=== PATIENT | male | born 1960 | race Hispanic/Latino ===

== ENCOUNTER 2017-10-30 09:12 | Outpatient (CLI) | payer OTHER ==
[2017-10-30 10:33] LABS: Hemoglobin 14.2 g/dL (14.0-18.0); Mean Corpuscular HGB CONC 33.7 g/dL (32.0-36.0); Mean Corpuscular Hemoglobin 32.1 pg (27.0-31.0); Mean Corpuscular Volume 95.4 fl (80.0-94.0); Mean Platelet Volume 7.8 fL (7.4-10.4); Platelet Count 172 thou/uL (130-400); Red Blood Cell (RBC) Count 4.41 mill/uL (4.70-6.10); White Blood Cell (WBC) Count 5.1 thou/uL (4.8-10.8)
[2017-10-30 10:56] LABS: Anion Gap 11 mmol/L (10-20); BUN (Urea Nitrogen) 16 mg/dL (8.4-25.7); Calc. Creatinine Clearance 0 mL/min (70-130); Calcium 9.3 mg/dL (7.8-10.44); Carbon Dioxide 27 mmol/L (22-29); Chloride 106 mmol/L (98-107); Estimated GFR-MDRD 79; Glucose 99 mg/dL (70-105); Sodium 140 mmol/L (136-145)
--- NOTE | 2017-10-30 23:54 | EKG ---
Test Reason : Blood Pressure : / mmHG Vent. Rate : 063 BPM Atrial Rate : 063 BPM P-R Int : 172 ms QRS Dur : 070 ms QT Int : 396 ms P-R-T Axes : 058 055 022 degrees QTc Int : 405 ms Normal sinus rhythm Cannot rule out Anterior infarct , age undetermined Abnormal ECG No previous ECGs available Confirmed by Seven HUBBARD ([id number]) on 10/30/2017 11:53:41 PM Referred By: TONJA Confirmed By:Seven HUBBARD
== END 2017-10-30 09:13 | disposition home or self-care (01) ==
LOC: LABBT 09:12
PROVIDERS: ATTEND Orthopaedic Surgery
DX: Z01.818 Encounter for other preprocedural examination (principal); G56.01 Carpal tunnel syndrome, right upper limb; G56.21 Lesion of ulnar nerve, right upper limb
CPT/HCPCS: 80048; 85027; 93005; 93010

== ENCOUNTER → 2017-11-01 | Day surgery (SDC) | payer OTHER ==
[2017-10-30 09:46] VITALS: BMI 24.3
[~2017-11-01] MED LIST: Bupivacaine HCl 0.5%/Epinephrine 1:200,000/PF 30 ml Vial ONE; CEFAZOLIN/Water 2 GM/20 ML SYRINGE ONE; Fentanyl 100 MCG/2 ML VIAL ONE; HYDROcodone/Acetaminophen 5/325 mg Tablet ONE; HYDROmorphone 0.5 MG/0.5 ML SYRINGE ONE; Ketorolac Tromethamine 30 MG/ML VIAL ONE; Lidocaine 1% PF 5 ML VIAL ONE; Midazolam HCl 2 mg/2 ml Vial ONE; Morphine 4 MG/ML VIAL ONE; Neomycin-Polymyxin 1 ML AMP ONE; Ondansetron HCl/PF 4 MG/2 ML Vial ONE; PROPOFOL 200 MG/20 ML VIAL ONE
--- NOTE | 2017-11-01 17:05 | OP ---
DATE OF OPERATION: 11/01/2017 PREOPERATIVE DIAGNOSES: 1. Right carpal tunnel syndrome. 2. Right cubital tunnel syndrome. POSTOPERATIVE DIAGNOSES: 1. Right carpal tunnel syndrome. 2. Right cubital tunnel syndrome. PROCEDURES: 1. Right carpal tunnel release. 2. Right cubital tunnel release with anterior transposition of the ulnar nerve. SURGEON: Bradley Martin M.D. ANESTHESIA: General. TECHNIQUE: The patient was given preoperative IV antibiotics, taken to the operating room, placed in supine position. Satisfactory general anesthesia was performed. The right upper extremity was ster ilely prepped and draped in the usual fashion. After exsanguination, the tourniquet was raised to 25 0 mmHg. Initially, a 12-mm curvilinear incision was made at the base of the thumb over the carpal tu nnel. Blunt and sharp dissection was made down to the transverse carpal ligament, which was opened w ith tenotomy scissors. The median nerve was identified and using the [place] carpal tunnel release, the interval between the median nerve and the transverse carpal ligament was developed and then betwe en the transverse carpal ligament and palmar fashion. Using the [place] tome scalpel, the transverse carpal ligament was completely incised into the palm of the hand and into the distal aspect of the f orearm. The median nerve was completely visualized and noted to have no further constrictive tissue into the forearm or into the hand. The wound was then irrigated with antibiotic solution and closed using 3-0 Rapide. A curvilinear incision was then made on the medial aspect of the elbow centered ov er the medial epicondyle. Blunt and sharp dissection was made down to the cubital tunnel and the uln ar nerve was identified. It was noted to be very small in the cubital tunnel and was bigger both pro ximally and distally to it. It measured approximately 8 mm proximal to the cubital tunnel and came d own to about 4-5 mm in the cubital tunnel. The ulnar nerve was completely released both proximally a nd distally. The tendon and muscles for the flexure mass to the forearm was then released using Bovi e. The tendons and muscles were cut approximately 1.5 cm from their origin on the medial epicondyle and the ulnar nerve was then placed into this area on the anterior aspect of the medial epicondyle ma anabela sure that there was no further constrictive or restrictive tissue on the ulnar nerve. Number 1 Vicryl was used in interrupted [id number] sutures to repair the muscle and tendon back to itself at the medial epicondyle and it was also made sure that the ulnar nerve had plenty of room in submus cular area and was not impinged at any point. The wound was then copiously irrigated with antibiotic solution and the fat and subcutaneous tissue was closed with 2-0 Vicryl and skin was closed with 3-0 Rapide. The medial wound at the elbow and the carpal tunnel incision were then infiltrated with a t otal of 30 mL of 0.5% Marcaine with epinephrine. Sterile dressing was applied. Tourniquet was relea sed. The patient was awakened, extubated and transferred to the recovery room in stable condition. ESTIMATED BLOOD LOSS: None. COMPLICATIONS: None. TOURNIQUET TIME: Total for the carpal tunnel release and the ulnar nerve release and anterior transp osition was 33 minutes. DISCHARGE MEDICATIONS: [place] 10 one every 6 hours as needed for pain, #50. Follow in my office in 1 week.
== END ==
LOC: SDC 09:20
PROVIDERS: ATTEND Orthopaedic Surgery
PROC: 01N40ZZ Release Ulnar Nerve, Open Approach (ICD-10-PCS; principal; 2017-11-01)
PROC: 01N50ZZ Release Median Nerve, Open Approach (ICD-10-PCS; principal; 2017-11-01)
DX: G56.01 Carpal tunnel syndrome, right upper limb (principal); G56.21 Lesion of ulnar nerve, right upper limb; Z79.1 Long term (current) use of non-steroidal anti-inflammatories (NSAID); Z98.890 Other specified postprocedural states; X50.0XXA Overexertion from strenuous movement or load, initial encounter
CPT/HCPCS: J0670; J1170; J1885; J2001; J2250; J2270; J2405; J2704; J3010

== ENCOUNTER 2018-05-07 07:18 | Day surgery (SDC) | payer OTHER ==
[2018-05-07] MEDS ORDERED: CEFAZOLIN 2 GM/50 ML BAG ONE (09:01)
[2018-05-07 09:34] LABS: Hemoglobin 13.3 g/dL (14.0-18.0); Mean Corpuscular HGB CONC 32.4 g/dL (32.0-36.0); Mean Corpuscular Volume 92.5 fL (78.0-98.0); Platelet Count 179 thou/uL (130-400); RBC Distribution Width 11.9 % (11.5-14.5); Red Blood Cell (RBC) Count 4.43 mill/uL (4.70-6.10); White Blood Cell (WBC) Count 6.4 thou/uL (4.8-10.8)
[2018-05-07] MEDS ORDERED: Midazolam HCl 2 mg/2 ml Vial ONE (09:43)
[2018-05-07] MEDS ORDERED: Scopolamine 1.5 mg/72 hour Patch ONE (09:43)
[2018-05-07] MEDS ORDERED: Fentanyl 100 MCG/2 ML VIAL ONE ×2 (09:46→11:06)
[2018-05-07] MEDS ORDERED: Bupivacaine HCl 0.5%/Epinephrine 1:200,000/PF 30 ml Vial ONE (09:47)
[2018-05-07] MEDS ORDERED: Neomycin-Polymyxin 1 ML AMP ONE (09:49)
[2018-05-07 09:51] LABS: Anion Gap 9 mmol/L (10-20); BUN (Urea Nitrogen) 20 mg/dL (8.4-25.7); Calc. Creatinine Clearance 0 mL/min (70-130); Calcium 9.3 mg/dL (7.8-10.44); Carbon Dioxide 28 mmol/L (22-29); Chloride 104 mmol/L (98-107); Estimated GFR-MDRD 86; Glucose 105 mg/dL (70-105); Potassium 3.9 mmol/L (3.5-5.1); Sodium 137 mmol/L (136-145)
[2018-05-07] MEDS ORDERED: Morphine 2 MG/ML SYRINGE ONE (12:01)
[2018-05-07] MEDS ORDERED: HYDROcodone/Acetaminophen 5/325 mg Tablet ONE (12:30)
[2018-05-07] MEDS ORDERED: PROPOFOL 200 MG/20 ML VIAL ONE (16:29)
[2018-05-07] MEDS ORDERED: Dexamethasone 20 MG/5 ML VIAL ONE (16:29)
[2018-05-07] MEDS ORDERED: Glycopyrrolate 0.2 MG/ML 5 ML SYRINGE ONE (16:29)
[2018-05-07] MEDS ORDERED: Ondansetron PF 4 MG/2 ML Vial ONE (16:29)
[2018-05-07] MEDS ORDERED: Ketorolac Tromethamine 30 MG/ML VIAL ONE (16:29)
[2018-05-07] MEDS ORDERED: Lidocaine 1% PF 5 ML VIAL ONE (16:29)
--- NOTE | 2018-05-07 18:10 | OP ---
DATE OF PROCEDURE: 05/07/2018 PREOPERATIVE DIAGNOSIS: Lateral epicondylitis of right elbow. POSTOPERATIVE DIAGNOSES: Lateral epicondylitis of right elbow with small tear of the lateral capsule of the right elbow. PROCEDURE PERFORMED: Lateral epicondylar release with repair of the lateral capsule to the right elbow. ANESTHESIA: General. DESCRIPTION OF PROCEDURE: The patient was given preoperative IV antibiotics, taken to the operating room, placed in the supine position. Satisfactory general anesthesia was performed. The right upper extremity was sterilely prepped and draped in the usual fashion. After exsanguination, tourniquet was raised to 250 mmHg. A curvilinear incision was made approximately 3.5 cm over the lateral epicondylar region and the lateral epicondyle tendons were sharply detached from the lateral epicondyle. Dissection was brought down to the lateral aspect of the capsule and there was a tear in the lateral aspect of the capsule. This was repaired using 0 Vicryl. There was no necrotic tissue within the lateral epicondylar tendons. After the capsule was repaired, the tendons were sutured back down to the lateral epicondylar area. The wound was copiously irrigated with antibiotic solution and then the wound was closed using 3-0 Rapide to the skin. The wound was infiltrated with 20 mL of 0.5% Marcaine with epinephrine. Sterile dressing was applied. Tourniquet was released. The patient was awakened, extubated, and transferred to recovery room in stable condition. ESTIMATED BLOOD LOSS: None. COMPLICATIONS: None. TOURNIQUET TIME: 21 minutes. DISCHARGE MEDICATIONS: [place] 10 one every 6 hours as needed for pain, #20. FOLLOWUP: Followup in my office in 2 weeks. Job ID: [id number]
== END 2018-05-07 13:13 | disposition home or self-care (01) ==
LOC: SDC 07:18
PROVIDERS: ATTEND Orthopaedic Surgery
PROC: 0LN30ZZ Release Right Upper Arm Tendon, Open Approach (ICD-10-PCS; principal; 2018-05-07)
DX: M77.11 Lateral epicondylitis, right elbow (principal); S53.491A Other sprain of right elbow, initial encounter; Z98.890 Other specified postprocedural states
CPT/HCPCS: 36415; 80048; 85027; 96374; J0670; J1100; J1885; J2001; J2250; J2270; J2405; J2704; J3010

== ENCOUNTER 2018-11-05 10:54 | Day surgery (SDC) | payer OTHER ==
[2018-11-05 11:33] LABS: Hemoglobin 13.7 g/dL (14.0-18.0); Mean Corpuscular HGB CONC 33.5 g/dL (32.0-36.0); Mean Corpuscular Hemoglobin 30.9 pg (27.0-31.0); Mean Corpuscular Volume 92.4 fL (78.0-98.0); Mean Platelet Volume 8.5 fL (7.4-10.4); Platelet Count 222 thou/uL (130-400); RBC Distribution Width 12.5 % (11.5-14.5); Red Blood Cell (RBC) Count 4.42 mill/uL (4.70-6.10); White Blood Cell (WBC) Count 4.9 thou/uL (4.8-10.8)
[2018-11-05] MEDS ORDERED: Fentanyl 100 MCG/2 ML VIAL ONE ×3 (11:50→11:59)
[2018-11-05] MEDS ORDERED: Midazolam HCl 2 mg/2 ml Vial ONE ×2 (11:50→11:59)
[2018-11-05 11:59] LABS: Anion Gap 14 mmol/L (10-20); BUN (Urea Nitrogen) 5 mg/dL (8.4-25.7); Calc. Creatinine Clearance 0 mL/min (70-130); Calcium 9.5 mg/dL (7.8-10.44); Carbon Dioxide 24 mmol/L (22-29); Chloride 108 mmol/L (98-107); Estimated GFR-MDRD Greater than 90; Glucose 90 mg/dL (70-105); Potassium 4.2 mmol/L (3.5-5.1); Sodium 142 mmol/L (136-145)
[2018-11-05] MEDS ORDERED: Bupivacaine/Epinephrine 0.25% 30 ML VIAL ONE (12:02)
[2018-11-05] MEDS ORDERED: Ropivacaine 0.2% 550 ML 550 ML NERVE BLCK SCH (12:16)
[2018-11-05] MEDS ORDERED: Ondansetron PF 4 MG/2 ML Vial IVP PRN (12:16)
[2018-11-05] MEDS ORDERED: Zolpidem Tartrate 5 MG TAB PO PRN (12:16)
[2018-11-05] MEDS ORDERED: HYDROcodone/Acetaminophen 10/325 mg Tablet PO PRN ×2 (12:16)
[2018-11-05] MEDS ORDERED: Promethazine HCl 25 MG/ML VIAL IM PRN (12:16)
[2018-11-05] MEDS ORDERED: Fentanyl 100 MCG/2 ML VIAL IV PRN (12:17)
--- NOTE | 2018-11-05 17:52 | OP ---
DATE OF PROCEDURE: 11/05/2018 PREOPERATIVE DIAGNOSIS: Biceps tendinitis of the right shoulder. POSTOPERATIVE DIAGNOSIS: Tear of the posterior superior labrum. PROCEDURE PERFORMED: Arthroscopy of right shoulder with repair of posterior superior labrum. ANESTHESIA: General. DESCRIPTION OF PROCEDURE: The patient was given preoperative IV antibiotics, taken to the operating room, placed in supine position. Satisfactory general anesthesia was performed. The patient was then placed in the left lateral decubitus position. All bony prominences were well padded. A 15 pounds traction was applied to the right upper extremity and the right shoulder was sterilely prepped and draped in usual fashion. The shoulder was scoped through the posterior approach. The biceps tendon was not present and the posterior and posterior superior aspect of the labrum was noted to be completely torn off the labrum. The anterior and inferior and posterior portion of the labrum was palpated and intact. The articular cartilage for the great part looked very good. There was small cartilaginous flap tear in the glenoid, which was removed with the shaver. An incision was made over the bicipital groove and blunt dissection was made down to the bicipital groove and the biceps tendon was not present. Attempts were made to locate it more distally and were unsuccessful. This wound was then closed up through an anterior superior portal. The superior and posterior superior labrum were repaired using Arthrex 2.9 anchors with FiberWire suture. This provided excellent repair of the labrum. The instruments were then removed and the portals were closed with 3-0 Rapide. Sterile dressing was applied. The patient was taken out of traction. He was awakened, extubated, and transferred to recovery room in stable condition. ESTIMATED BLOOD LOSS: 50 mL. COMPLICATIONS: None. DISCHARGE MEDICATION: [place] 10 one every 4 to 6 hours as needed for pain #40 with no refills. FOLLOWUP: Follow up in my office next week. Job ID: [id number]
== END 2018-11-05 18:07 | disposition home or self-care (01) ==
LOC: SDC 10:54
PROVIDERS: ATTEND Orthopaedic Surgery
PROC: 0MM14ZZ Reattachment of Right Shoulder Bursa and Ligament, Percutaneous Endoscopic Approach (ICD-10-PCS; principal; 2018-11-05)
DX: S43.401A Unspecified sprain of right shoulder joint, initial encounter (principal); M75.21 Bicipital tendinitis, right shoulder; G89.18 Other acute postprocedural pain
CPT/HCPCS: 36415; 80048; 85027; A4306; C1713; J0690; J2250; J2795; J3010